=== PATIENT | female | born 1960 | race African-American/Black ===

== ENCOUNTER 2016-12-09 12:44 | Emergency (ER) | payer MEDICARE, OTHER ==
[~2016-12-09] VITALS: Ht 175.3 cm; Wt 118.2 kg
[~2016-12-09 12:44] MED LIST: ERYT.5%O LEFT EYE
[2016-12-09 12:46] VITALS: BP 167/80; PULSE 96; RESP 12; TEMP 98.4; O2SAT 97
--- NOTE | 2016-12-09 13:01 | PD ---
HPI Chief Complaint: Head Injury Time Seen by Provider: 13:01 Travel History International Travel<30 days: No Contact w/Intl Traveler<30days: No Traveled to known affect area: No PFSH Past Medical History Arthritis: No Anxiety: Yes Depression: Yes Cardiovascular Problems: No Cerebrovascular Accident: No Diminished Hearing: No Genitourinary: Yes (HAS HAD URETHA STRETCHED ) Headaches: No Hypertension: Yes Musculoskeletal: No Neurologic: No Psychiatric: Yes (HX SCHIZOAFFECTIVE D/O, BIPOLAR) Respiratory: No Immunizations Current: Yes Migraines: No Schizophrenia: Yes Seizures: No Menopausal: Yes : 0 Past Surgical History Abdominal Surgery: No Cardiac Surgery: No Ear Surgery: No Endocrine Surgery: No Eye Surgery: No Genitourinary Surgery: No Gynecologic Surgery: Yes (PARTIAL HYSTERECTOMY) Hysterectomy: Yes Oral Surgery: No Thoracic Surgery: No Social History Alcohol Use: No Tobacco Use: No Substance Use: No Allergies-Medications (Allergen,Severity, Reaction): Coded Allergies: No Known Allergies (Verified , 12/09/16) Reported Meds & Prescriptions Reported Meds & Active Scripts Active No Active Prescriptions or Reported Medications Data Data Last Documented VS Vital Signs Date Time Temp Pulse Resp B/P Pulse Ox O2 Delivery O2 Flow Rate FiO2 12/09/16 12:46 98.4 96 12 167/80 97 Room Air MDM Scripts No Active Prescriptions or Reported Meds Lam Hunter Dec 09, 2016 13:01
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
== END 2016-12-09 13:33 | disposition left against medical advice (07) ==
LOC: NEPB 12:44
DX: R51 Headache (principal)
CPT/HCPCS: 99281

== ENCOUNTER 2017-08-04 13:24 | Emergency (ER) | payer OTHER, MEDICARE ==
[~2017-08-04] VITALS: Ht 175.3 cm; Wt 100.0 kg
[2017-08-04 13:32] VITALS: BP 156/85; PULSE 88; RESP 16; TEMP 98.4; O2SAT 98
[2017-08-04] MEDS ORDERED: IBUPROFEN 800 MG TAB PO ONE (14:00)
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
[2017-08-04] MEDS ORDERED: ROBA500T PO (14:47)
[2017-08-04] MEDS ORDERED: IBUP800T23 PO (14:47)
[2017-08-04] MEDS ORDERED: WALKER/ADULT/FO1 MIS (14:48)
== END 2017-08-04 15:00 | disposition home or self-care (01) ==
LOC: NEPK 13:24
DX: S99.912A Unspecified injury of left ankle, initial encounter (principal); S79.912A Unspecified injury of left hip, initial encounter; M54.42 Lumbago with sciatica, left side; I10 Essential (primary) hypertension; V19.49XA Pedal cycle driver injured in collision with other motor vehicles in traffic accident, initial encounter; Y93.55 Activity, bike riding
CPT/HCPCS: 73502; 73610; 99284; E0113; L1906